=== PATIENT | male | born 1960 | race African-American/Black ===

== ENCOUNTER 2018-09-18 18:25 | Emergency (ER) | payer MEDICARE, MEDICAID ==
--- NOTE | 2018-09-18 20:27 | RAD ---
THREE VIEWS THIRD DIGIT RIGHT HAND: 09/18/18 HISTORY: Laceration with Skill saw on Sunday. AP, lateral, and oblique views third digit right hand obtained. Images demonstrate soft tissue injury seen. The proximal middle and distal phalanges third digit are unremarkable without evidence of obvious lesions or abnormalities. IMPRESSION: Soft tissue injury with no evidence of acute fracture seen. POS: [facility]
[2018-09-18] MEDS ORDERED: Bacitracin Zinc 1 Packet ONE (20:32)
[2018-09-18] MEDS ORDERED: Adacel (T-DAP) 0.5 ML SYRINGE ONE (20:45)
== END 2018-09-18 21:01 | disposition home or self-care (01) ==
LOC: ERS 18:25
DX: S61.212A Laceration without foreign body of right middle finger without damage to nail, initial encounter (principal); F17.210 Nicotine dependence, cigarettes, uncomplicated; Z79.891 Long term (current) use of opiate analgesic; W27.0XXA Contact with workbench tool, initial encounter
CPT/HCPCS: 90471; 90715

== ENCOUNTER 2022-11-05 19:45 | Emergency (ER) | payer MEDICARE, MEDICAID ==
[2022-11-05 20:44] LABS: #Eosinphils 0.6 thou/uL (0.0-0.7); #Lymphocytes 1.8 thou/uL (1.20-3.40); #Monocytes 0.3 thou/uL (0.11-0.59); %Basophils 0.4 % (0.0-1.0); %Eosinophils 15.9 % (0.0-10.0); %Monocytes 7.4 % (0.0-10.0); %Neutrophils 28.3 % (42.0-75.0); Hemoglobin 14.8 g/dL (14.0-18.0); Mean Corpuscular HGB CONC 35.5 g/dL (32.0-36.0); Mean Corpuscular Hemoglobin 35.5 pg (27.0-31.0); Mean Platelet Volume 7.1 fL (7.4-10.4); Platelet Count 254 10x3/uL (130-400); RBC Distribution Width 12.3 % (11.5-14.5); Red Blood Cell (RBC) Count 4.17 mill/uL (4.70-6.10); White Blood Cell (WBC) Count 3.7 10x3/uL (4.8-10.8)
[2022-11-05 20:45] LABS: ALT (SGPT) 14 U/L (8-55); AST (SGOT) 22 U/L (5-34); Albumin 3.9 g/dL (3.4-4.8); Alkaline Phosphatase 111 U/L (40-110); Anion Gap 16 mmol/L (10-20); BUN (Urea Nitrogen) 8 mg/dL (8.4-25.7); Bilirubin, Total 0.4 mg/dL (0.2-1.2); Calc. Creatinine Clearance 0 mL/min (70-130); Calcium 8.9 mg/dL (7.8-10.44); Carbon Dioxide 21 mmol/L (23-31); Chloride 98 mmol/L (98-107); Estimated GFR 94; Globulin 3.5 g/dL (2.4-3.5); Glucose 90 mg/dL (80-115); Protein, Total 7.4 g/dL (5.8-8.1); Sodium 131 mmol/L (136-145)
== END 2022-11-05 22:38 | disposition home or self-care (01) ==
LOC: ERS 19:45
DX: R07.89 Other chest pain (principal); D72.819 Decreased white blood cell count, unspecified; F17.210 Nicotine dependence, cigarettes, uncomplicated
CPT/HCPCS: 36415; 71045; 72170; 80053; 83690; 83880; 84484; 85025; 93005